=== PATIENT | female | born 1955 | race Caucasian/White ===

== ENCOUNTER 2018-09-26 09:16 | Emergency (ER) | payer OTHER ==
--- NOTE | 2018-09-26 10:01 | ED ---
Palpitations / Dysrhythmia - HPI Summary HPI Summary: Patient is a 63-year-old female who presents to the emergency department for intermittent dizziness and palpitations times several months. Patient states she had more severe episodes of dizziness and was instructed to come to the ER for evaluation by on-call physician. Past medical history of bariatric surgery. Patient describes dizziness as feeling unsteady. She states episodes will happen occasionally and if she stands still for a few moments they will pass. She also describes palpitations that occur mostly at night when she is trying to fall asleep. She states she has been experiencing the palpitations throughout the day. Patient states she was drinking numerous cups of coffee daily which she is cutting back on. Pt. is not sure if dizziness and palpitations occur together. Patient denies associated symptoms of syncope, chest pain, shortness of breath, diaphoresis, nausea or vomiting. Patient does note she has been having right ear pain and fullness over the last few days. Symptoms are moderate in severity. She's never been worked up for these symptoms. She otherwise denies headache, numbness, tingling or weakness. Symptoms are moderate in severity. No current modifying factors. Pt. notes she has been having a lot of stress at home and at work lately. - History of Current Complaint Chief Complaint: EDDizziness Time Seen by Provider: 09/26/18 09:37 Hx Obtained From: Patient - Allergy/Home Medications Allergies/Adverse Reactions: Allergies Allergy/AdvReac Type Severity Reaction Status Date / Time latex Allergy Itching Verified 09/26/18 09:23 naproxen Allergy Swelling Verified 09/26/18 09:23 Of Face,Lips,& Throat PMH/Surg Hx/FS Hx/Imm Hx Previously Healthy: Yes Musculoskeletal History: Reports: Hx Arthritis - LOWER BACK AND BOTH HIPS, Hx Bursitis - BOTH HIPS Sensory History: Reports: Hx Cataracts - BILATERAL, Hx Contacts or Glasses - GLASSES Denies: Hx Hearing Aid Opthamlomology History: Reports: Hx Cataracts - BILATERAL, Hx Contacts or Glasses - GLASSES Psychiatric History: Reports: Hx Anxiety - ON MEDICATION FOR, Hx Depression - Surgical History Surgery Procedure, Year, and Place: HYSTERECTOMY. TUBAL LIGATION. TEETH EXTRACTION- 1 YEAR AGO-DENTIST OFFICE Hx Anesthesia Reactions: No Infectious Disease History: No Infectious Disease History: Denies: Traveled Outside the [place] in Last 30 Days - Family History Known Family History: Positive: Non-Contributory - Social History Occupation: Employed Full-time Lives: With Family Alcohol Use: Rare Substance Use Type: Reports: None Smoking Status (MU): Never Smoked Tobacco Review of Systems Constitutional: Negative Negative: Fever, Chills Eyes: Negative ENT: Negative Positive: Palpitations. Negative: Chest Pain Respiratory: Negative Negative: Shortness Of Breath, Cough Gastrointestinal: Negative Genitourinary: Negative Musculoskeletal: Negative Skin: Negative Neurological: Negative Negative: Headache, Weakness, Paresthesia, Numbness, Syncope All Other Systems Reviewed And Are Negative: Yes Physical Exam Triage Information Reviewed: Yes Vital Signs On Initial Exam: Initial Vitals Temp Pulse Resp BP Pulse Ox 97.4 F 71 14 114/81 97 09/26/18 09:19 09/26/18 09:19 09/26/18 09:19 09/26/18 09:19 09/26/18 09:19 Vital Signs Reviewed: Yes Appearance: Positive: Well-Appearing - Pt. sitting up in bed in NAD. Pleasant. Skin: Positive: Warm, Dry Head/Face: Positive: Normal Head/Face Inspection Eyes: Positive: Normal, EOMI, JACQUELINE ENT: Positive: Other - Fluid level left TM without erythema. Neck: Positive: Supple, Nontender Respiratory/Lung Sounds: Positive: Clear to Auscultation, Breath Sounds Present Cardiovascular: Positive: Normal, RRR. Negative: Murmur Abdomen Description: Positive: Nontender, Soft Musculoskeletal: Positive: Normal, Strength/ROM Intact. Negative: Edema Left, Edema Right Neurological: Positive: Normal, Sensory/Motor Intact, Alert, Oriented to Person Place, Time, CN Intact II-III, Normal Gait, Finger to Nose - normal, Facial Symmetry, Speech Normal. Negative: Cerebellar Dysfunction, Facial Droop, Slurred Speech, Pronator Drift Present Psychiatric: Positive: Affect/Mood Appropriate Diagnostics - Vital Signs Vital Signs Temp Pulse Resp BP Pulse Ox 09/26/18 09:19 97.4 F 71 14 114/81 97 - Laboratory Result Diagrams: 09/26/18 10:18 09/26/18 10:17 Lab Statement: Any lab studies that have been ordered have been reviewed, and results considered in the medical decision making process. Course/Dx - Course Course Of Treatment: Patient presenting with intermittent palpitations and dizziness for several months. She is currently asymptomatic in the emergency department. She is afebrile with stable vital signs. Neurological exam is unremarkable. Patient placed on monitor. EKG done at 1016 shows a sinus roselyn of 54bpm, normal axis, no ST elevation or depression, similar to prior tracing. Blood work unremarkable. Brain ct obtained to r/o mass, bleed. CT negative for acute findings per radiology. Orthostatic VS unremarkable. Pt. ambulated without ataxia. Results discussed with pt. Recommend she fu with PCP for further evaluation of her sxs and referral to cardio as well as outpt. holter monitor. Advised pt. she can try allergra d for fluid behind right TM. Will return to ER if sxs change or worsen. Pt. understands and agrees with plan. - Diagnoses Provider Diagnoses: Dizziness, Palpitations Discharge - Sign-Out/Discharge Documenting (check all that apply): Patient Departure Patient Received Moderate/Deep Sedation with Procedure: No - Discharge Plan Condition: Good Disposition: HOME Patient Education Materials: Heart Palpitations (ED), Dizziness (ED) Referrals: Albert Maldonado MD [Primary Care Provider] - Additional Instructions: Call your PCP on Friday for a close follow up appointment for further evaluation and cardiology referral Recommend out patient holter monitor testing Can try taking an over the counter antihistamine/decongestant to help with fullness/fluid in right ear such zyrtec D or michi D Return to ER if symptoms change or worsen - Billing Disposition and Condition Condition: GOOD Disposition: Home
[2018-09-26 10:28] LABS: ABS Eosinophils 0.2 10^3/ul (0-0.6); ABS Lymphocytes 1.4 10^3/ul (1.0-4.8); ABS Monocytes 0.5 10^3/ul (0-0.8); ABS Neutrophils 2.6 10^3/ul (1.5-7.7); Eosinophil % 3.4 %; Hematocrit 38 % (35-47); Hemoglobin 12.6 g/dL (12.0-16.0); Lymphocyte % 30.6 %; Mean Corpuscular HGB Conc 33 g/dL (31-36); Mean Corpuscular Hemoglobin 30 pg (27-31); Mean Corpuscular Volume 91 fL (80-97); Mean Platelet Volume 7.7 fL (7.4-10.4); Nucleated Red Blood Cells % 0.1; Platelet Count 162 10^3/uL (150-450); Red Blood Count 4.15 10^6 /uL (3.70-4.87); Red Cell Distribution Width 13 % (10-15); White Blood Count 4.7 10^3/uL (3.5-10.8)
[2018-09-26 10:47] LABS: Albumin 3.7 g/dL (3.2-5.2); Albumin/Globulin Ratio 1.8 (1-3); BUN/Creatinine Ratio 34.8 (8-20); Calcium 8.8 mg/dL (8.6-10.3); EGFR African American 104.7 (>60); EGFR Non-African American 86.5 (>60); Globulin 2.1 g/dL (2-4); Potassium 3.9 mmol/L (3.5-5.0); Total Bilirubin 0.4 mg/dL (0.2-1.0); Total Protein 5.8 g/dL (6.4-8.9)
[2018-09-26 11:30] LABS: TSH (Thyroid Stimulating Horm) 1.63 mcIU/mL (0.34-5.60)
[2018-09-26 12:15] VITALS: BP 101/54
[2018-09-26 13:39] LABS: HIV 4th Generation Negative (Negative)
[2018-09-26 14:32] LABS: Hepatitis C Antibody Negative (Negative)
== END 2018-09-26 12:14 | disposition home or self-care (01) ==
LOC: ED 09:16
DX: R42 Dizziness and giddiness (principal); R00.1 Bradycardia, unspecified; R00.2 Palpitations; F41.9 Anxiety disorder, unspecified; Z88.6 Allergy status to analgesic agent; Z91.040 Latex allergy status
CPT/HCPCS: 36415; 70450; 71045; 80053; 83735; 84443; 84484; 85025; 86803; 87389; 93005; 99283